=== PATIENT | female | born 1940 | race Caucasian/White ===

== ENCOUNTER 2019-07-21 07:57 | Outpatient (CLI) | payer OTHER, MEDICAID, SELFPAY ==
[2019-07-21 08:16] LABS: Basophils Percent Auto 0.4 % (0.2-1.2); Eosinophils Absolute Auto 0.1 K/mm3 (0-0.3); Eosinophils Percent Auto 1.6 % (0-4.4); Hematocrit 41.4 % (37.0-47.0); Hemoglobin 13.7 g/dL (12.0-15.0); Immature Granulocyte Absolute 0.01 K/mm3 (0.00-0.031); Immature Granulocyte Percent A 0.2 % (0-0.5); Lymphocytes Percent Auto 45.7 % (18.3-44.2); Mean Corpuscular HGB Conc 33.1 g/dl (32-36); Mean Corpuscular Hemoglobin 28.1 pg (26-34); Mean Platelet Volume 9.7 fl (7.4-10.4); Monocytes Absolute Auto 0.4 K/mm3 (0.1-0.6); Monocytes Percent Auto 6.9 % (2.6-8.5); Neutrophils Absolute Auto 2.6 K/mm3 (1.3-6.7); Neutrophils Percent Auto 45.2 % (45.5-73.1); Platelet Count Result 238 k/mm3 (150-375); Red Blood Count 4.87 M/mm3 (4.2-5.4); Red Cell Distribution Width 13.8 % (11.5-14.5); White Blood Count 5.7 K/mm3 (4.5-10.0)
[2019-07-21 08:38] LABS: LDL Cholesterol Direct 69 mg/dL
[2019-07-21 08:46] LABS: Albumin Level 4.8 g/dL (3.5-5.1); Carbon Dioxide 23 mmol/L (22-30)
[2019-07-21 08:51] LABS: Hemoglobin A1C 6.9 % (<5.7)
[2019-07-21 11:13] LABS: Alanine Aminotransferase 33 U/L (4-35); Alkaline Phosphatase 42 U/L (38-126); Aspartate Amino Transferase 45 U/L (14-36); Blood Urea Nitrogen 16 mg/dL (7-17); Calcium 9.7 mg/dL (8.4-10.2); Chloride 104 mmol/L (98-107); Cholesterol 134 mg/dL (0-200); Estimated Glomerular Filt Rate > 60; Glucose 136 mg/dL (65-105); HDL Direct 34 mg/dL; Potassium 4.4 mmol/L (3.4-5.0); Sodium 138 mmol/L (137-145); Triglycerides 206 mg/dL (<150)
== END 2019-07-21 07:58 | disposition home or self-care (01) ==
PROVIDERS: PCP Family Medicine; Visit Provider Family Medicine
DX: E78.5 Hyperlipidemia, unspecified (principal); I10 Essential (primary) hypertension; E11.9 Type 2 diabetes mellitus without complications
CPT/HCPCS: 36415; 80053; 80061; 83036; 85025

== ENCOUNTER → 2021-01-25 11:49 | Outpatient (CLI) | payer OTHER, MEDICAID, SELFPAY ==
--- NOTE | ~2021-01-25 | XR_ITS ---
EXAMINATION: XR shoulder LT min 2V INDICATION: Left shoulder pain TECHNIQUE: Three views of the left shoulder are submitted. COMPARISON: None FINDINGS: Normal alignment. No fracture. There is moderate osteoarthritis of the acromioclavicular mary beth int and mild osteoarthritis of the glenohumeral joint. Soft tissues are unremarkable. IMPRESSION: 1. Osteoarthritis without acute osseous abnormality. Reviewed, dictated and finalized at location A.
--- NOTE | ~2021-01-25 | XR_ITS ---
EXAMINATION: XR thoracic spine 2V DATE: 01/25/2021 12:35 INDICATION: Dorsalgia, unspecified TECHNIQUE: AP and lateral views of the thoracic spine were obtained. COMPARISON: None. FINDINGS: No fracture is identified. There is mild anterior wedging T7-T9 which has a chronic appeara nce. There is mild loss of intervertebral disc space height in the midthoracic spine. Small degenerat connie osteophytes project from the anterior endplates of multiple vertebral bodies. Calcified atheroscl erosis is noted. Surgical clips in the right upper quadrant are likely from prior cholecystectomy. IMPRESSION: 1. Mild thoracic spondylosis. Reviewed, dictated and finalized at location A.
--- NOTE | ~2021-01-25 | XR_ITS ---
EXAMINATION:XR_CERV2-3V_CR DATE: 01/25/2021 12:34 INDICATION: Neck pain TECHNIQUE: AP, lateral, and odontoid views of the cervical spine are provided. COMPARISON: CT, 03/26/2018 FINDINGS: Alignment is normal. The odontoid is intact. No fracture is identified. The vertebral body heights are normal. There is unchanged there is mild facet and uncovertebral joint osteoarthritis. Mi ld loss of intervertebral disc space height at C6-7. Prevertebral soft tissues are normal. IMPRESSION: 1. Mild cervical spondylosis without acute findings or significant interval change. Reviewed, dictated and finalized at location A. IMPRESSION: 1. Mild cervical spondylosis without acute findings or significant interval rafa lisa.
== END ==
PROVIDERS: PCP Family Medicine; Visit Provider Family Medicine
DX: M47.894 Other spondylosis, thoracic region (principal); M47.892 Other spondylosis, cervical region; M19.012 Primary osteoarthritis, left shoulder
CPT/HCPCS: 72040; 72070; 73030

== ENCOUNTER 2021-02-16 08:49 | Outpatient (CLI) | payer OTHER, MEDICAID, SELFPAY ==
--- NOTE | ~2021-02-16 | DEXA_ITS ---
Bone Density Report Name: Manasa Stuart Age: 80 Sex: Female Ethnicity: White Date of : 1940 Indication: monitoring treatment; height loss; prior fracture; cancer; hysterectomy; postmenopausal Referring Provider: Lisa Cazares Study: Bone densitometry was performed. Exam Date: February 16, 2021 Accession number: [id number] Bone Density: Region BMD T-score Z-score Classification AP Spine (L1-L4) 1.012 -0.3 2.4 Normal Femoral Neck (Left) 0.673 -1.6 0.7 Osteopenia Total Hip (Left) 0.863 -0.6 1.4 Normal Total Hip Bilateral Avg 0.865 -0.6 1.4 Normal Femoral Neck (Right) 0.661 -1.7 0.6 Osteopenia Total Hip (Right) 0.867 -0.6 1.4 Normal World Health Organization criteria for BMD impression classify patients as: Normal (T-score at or above -1.0), Osteopenia (T-score between -1.0 and -2.5), or Osteoporosis (T-score at or below -2.5). 10-year Fracture Risk: FRAX not reported because: Treated for osteoporosis Previous Exams: Region Exam Age BMD T-score BMD Change BMD Change Date g/cm2 vs Baseline vs Previous AP Spine(L1-L4) 02/16/2021 80 1.012 -0.3 0.027(2.7%)* -0.006(-0.5%) 08/05/2018 78 1.017 -0.3 0.032(3.3%)* 0.032(3.3%)* 04/18/2016 76 0.985 -0.6 Total Hip(Left) 02/16/2021 80 0.863 -0.6 -0.029(-3.2%)* -0.043(-4.8%)* 08/05/2018 78 0.906 -0.3 0.014(1.6%) 0.014(1.6%) 04/18/2016 76 0.892 -0.4 Total Hip(Right) 02/16/2021 80 0.867 -0.6 -0.038(-4.2%)* -0.006(-0.7%) 08/05/2018 78 0.873 -0.6 -0.032(-3.5%)* -0.032(-3.5%)* 04/18/2016 76 0.905 -0.3 *Denotes significance at 95% confidence level, LSC for AP Spine = 0.022 g/cm2, LSC for Total Hip = 0.027 g/cm2 Clinical Information Provided by Patient: Has had a low trauma fracture Is being treated for osteoporosis Has used the following medications: Fosamax (i.e. alendronate), Vitamin D, Calcium Has the following medical conditions: Cancer, Hysterectomy Patient maximum height was 67.5 Menopause Age: 36 Does not regularly consume dairy products Drinks caffeinated beverages Onset of menses at age 16 Number of children 4 Impression: The patient has low bone mass, based on the Right Femoral Neck T-score. The patient has risk factors, including: previous fracture. The BMD for the Total Hip(Left) decreased, changing by -4.8% since the last DXA exam. Discussion: SIGNIFICANT BONE LOSS OBSERVED. Adherence to therapy (including calcium and vitamin D intake)
--- NOTE | ~2021-02-16 | MM_ITS ---
EXAMINATION: MM screening cindi BI w grady HISTORY: Screening mammogram, family history of breast cancer in her sister. TECHNIQUE: Craniocaudal and mediolateral oblique 3-D tomosynthesis images were obtained and synthetic 2-D images were generated. CAD analysis was submitted and interpreted. COMPARISON: 08/05/2018, 11/11/2017, 05/14/2017 BREAST PARENCHYMAL COMPOSITION: There are scattered areas of fibroglandular density. FINDINGS: Scattered benign-appearing calcifications are present. There is no evidence of suspicious m ass, calcification, or architectural distortion to suggest malignancy in either breast. There has bee n no suspicious interval change. IMPRESSION: 1. No mammographic evidence of malignancy. 2. Recommend routine screening mammography in one year. BI-RADS Category 2: Benign finding(s). Reviewed, dictated and finalized at location A. 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
== END 2021-02-16 08:50 | disposition home or self-care (01) ==
LOC: ANHIMG 08:51
PROVIDERS: PCP Family Medicine; Visit Provider Family Medicine
DX: Z12.31 Encounter for screening mammogram for malignant neoplasm of breast (principal); Z78.0 Asymptomatic menopausal state; M81.0 Age-related osteoporosis without current pathological fracture; M85.852 Other specified disorders of bone density and structure, left thigh; M85.851 Other specified disorders of bone density and structure, right thigh
CPT/HCPCS: 77063; 77067; 77080

== ENCOUNTER 2021-02-22 06:34 | Outpatient (CLI) | payer OTHER, MEDICAID, SELFPAY ==
--- NOTE | ~2021-02-22 | MR_ITS ---
EXAMINATION: MR cervical spine wo con DATE: 02/22/2021 08:03 INDICATION: Neck pain. TECHNIQUE: Magnetic resonance imaging (MRI) of the cervical spine was performed without intravenous c ontrast. Sequences included sagittal T2-weighted FSE, sagittal T2-weighted FS FSE, sagittal T1-weight ed FSE, axial MERGE, and axial T2-weighted FSE. COMPARISON: Cervical spine radiographs 01/25/2021 FINDINGS: There is 5 degrees levocurvature of cervical spine. Vertebral body heights are normal. Ther e is mildly decreased disc height at C6-C7. The spinal cord signal intensity is normal. The following disc levels are specifically discussed: C2-C3: The disc does not extend beyond the endplate margin. There is no uncovertebral joint osteoarth ritis. There is mild right facet joint osteoarthritis. There is no neural foraminal stenosis. There i s no central canal stenosis. C3-C4: The disc does not extend beyond the endplate margin. There is no uncovertebral joint osteoarth ritis. There is mild bilateral facet joint osteoarthritis. There is no neural foraminal stenosis. The re is no central canal stenosis. C4-C5: The disc is bulging. There is moderate right and mild left uncovertebral joint osteoarthritis. There is severe right and moderate left facet joint osteoarthritis. There is mild right neural rock inal stenosis. There is mild central canal stenosis with ventral indentation of the spinal cord. C5-C6: The disc is bulging. There is no uncovertebral joint osteoarthritis. There is mild right facet joint osteoarthritis. There is mild right neural foraminal stenosis. There is mild central canal christy nosis. C6-C7: The disc is bulging. There is no uncovertebral joint osteoarthritis. There is moderate right a nd mild left facet joint osteoarthritis. There is mild right neural foraminal stenosis. There is mild central canal stenosis. C7-T1: The disc does not extend beyond the endplate margin. There is no uncovertebral joint osteoarth ritis. There is mild bilateral facet joint osteoarthritis. There is no neural foraminal stenosis. The re is no central canal stenosis. IMPRESSION: 1. Mild cervical spondylosis. Reviewed, dictated and finalized at location B. 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
== END 2021-02-22 06:35 | disposition home or self-care (01) ==
PROVIDERS: PCP Family Medicine; Visit Provider Family Medicine
DX: M47.892 Other spondylosis, cervical region (principal)
CPT/HCPCS: 72141

== ENCOUNTER 2021-04-17 09:00 | Outpatient (RCR) | payer OTHER, MEDICAID, SELFPAY ==
--- NOTE | 2021-03-20 09:02 | PTOPEVAL ---
PHYSICAL THERAPY EVALUATION AND PLAN OF CARE 03-20-21 Thank you for referring Manasa Stuart to [facility] for the diagnosis of cervical radiculopathy. She is scheduled to be seen for therapy? 2 x/week for 4 weeks. Please review, sign, date and return this plan of care LIO. I agree with and certify that the following plan of care is medically necessary. Referring Physician Date Attending Provider: Lisa Cazares DO *PT Outpatient Evaluation Start: 03/20/21 08:11 Document 03/20/21 08:05 SEN (Rec: 03/20/21 08:55 SEN [id number]) Outpatient Past Medical History Past Medical History Source of Past Medical History Patient Neurological History Hx Neurological Disorders No Significant History Cardiovascular History Hx Hypertension Yes: meds Respiratory History Hx Respiratory Disorders No Significant History Gastrointestinal History Hx Gastrointestinal Disorders No Significant History Genitourinary History Hx Other Genitourinary Disorders Yes: urinary urgency Musculoskeletal History Hx Orthopedic Surgery Yes: B ankle ORIF, back surgery x2-&; Endocrine History Hx Diabetes Yes: meds HEENT History Hx Other HEENT Disorders Yes: B hearing aides Other History Hx Cancer Yes: several areas of skin cancer removed Hx Other Medical Conditions Yes: have had covid vaccine Evaluation Information Problem Diagnosis cervical radiculopathy Onset 02-07-21 Subjective Information at home, barefoot and tangled Query Text:As Reported By Patient/ up with vacuum cord, reached Family for doorknob to catch herself, door moved, she fell and landed on L shoulder; x ray report stated mild to moderate arthritis of shoulder and neck; MRI neck reported C 4-5, C 5-6 and C 6-7 with bulging discs and C 4-5 and C 6-7 with moderate to severe facet OA; since onset, little better with rest and decreased activity; Prior Level of Function Activity Level (Last 3 Months) Occupation retired Hand Dominance Right Activity of Daily Living Ability Independent Indoor/Home Mobility Independent Community Mobility Independent Stairs Ability Independent Functional Cognition (Planning, Shopping Independent , Taking Medications) Cooking Yes Cleaning Yes
--- NOTE | 2021-03-30 13:58 | PCPTNOTE ---
Patient called & cancelled scheduled appointment this date due to not feeling well.
--- NOTE | 2021-04-17 09:37 | PTOPEVAL ---
PHYSICAL THERAPY DISCHARGE 04-17-21 Refer to the clinical summary for her status today, compared to the initial evaluation. All of the goals were achieved; she will be discharged from PT at this time. Thank you for referring Manasa Stuart to [facility] Please review, sign, date and return this Discharge report LIO. I agree with and certify that the following plan of care is medically necessary. Referring Physician Date Attending Provider: Lisa Cazares, DO Document 04/17/21 09:05 SEN (Rec: 04/17/21 09:37 SEN [id number]) Assessment Status Discharge Subjective Information Manasa reports: doing better, Query Text:As Reported By Patient/ can move arm better, can wash Family hair without pain; doing her home exercises without any problems; when the [facility] back up, is going to return to doing chair exercises and yoga there; is pleased with her therapy and agrees to discharge from PT services. Pain Assessment Timing of Pain Assessment Timing of Pain Assessment Assessment Pain Scale Pain Scale Used Numeric (1 - 10) Self Report Pain Assessment Bilateral Neck Reported Pain Level 0 Pain Frequency Chronic,Intermittent Lowest Pain Intensity 0 Greatest Pain Intensity 3 Pain Aggravating Factors Exercise/Activity Other Pain Aggravating Factors carrying groceries in and it was cold outside; Pain Score Pain Score 0: Self Report Additional Pain Score Comments Oswestry self assessment score of 10% limitation able to cook without any problem or pain; able to reach and wash hair without pain; Interventions Used Interventions Used By Clinicians Education,Exercise Pain Relief Interventions Used By Heat Patient Other Alleviating Interventions muscle cream; Upper Extremity Range of Motion General Upper Extremity Range of Motion Gross Upper Extremity Range of Motion cervical ROM: rotation to R Comments and L with equal ROM and no pain reported; standing L shoulder ROM: active flexion 140' abduction 145'; ER- reach to back of head with palm -- can feel a little in posterior humerus; IR- reach behind back, fingers
== END 2021-04-18 14:37 | disposition home or self-care (01) ==
LOC: ANHPT 09:00
PROVIDERS: PCP Family Medicine; Visit Provider Family Medicine
DX: M54.12 Radiculopathy, cervical region (principal)
CPT/HCPCS: 97014; 97110; 97140; 97161; G0283

== ENCOUNTER 2021-08-02 10:07 | Outpatient (CLI) | payer OTHER, MEDICAID, SELFPAY ==
--- NOTE | ~2021-08-02 | XR_ITS ---
EXAMINATION: XR chest 2V DATE: 08/02/2021 10:35 INDICATION: Dyspnea, unspecified. TECHNIQUE: Frontal and lateral views of the chest were obtained. COMPARISON: None. FINDINGS: There is no pneumonia, pleural effusion, or pneumothorax. Cardiomegaly is noted. There is m ild chronic anterior wedging of multiple midthoracic vertebral bodies. IMPRESSION: 1. Cardiomegaly. Reviewed, dictated and finalized at location B. IMPRESSION: 1. Cardiomegaly.
== END 2021-08-02 10:08 | disposition home or self-care (01) ==
PROVIDERS: PCP Family Medicine; Visit Provider Family Medicine
DX: R06.00 Dyspnea, unspecified (principal); I51.7 Cardiomegaly
CPT/HCPCS: 71046

== ENCOUNTER 2021-09-26 07:22 | Outpatient (CLI) | payer OTHER, MEDICAID, SELFPAY ==
--- NOTE | 2021-10-09 19:20 | WPDHOMESLEEP ---
Sleep Study - Home Unattended Date of Study: 09/26/21 Ordering Provider: Quinn Joshi DO Interpreting Provider: Marcia Alicea DO Home Sleep Study Type: Apnea Link Air Height: 1.7 m Weight: 87.997 kg Body Mass Index: 30.4 Neck Circumference (inches): 16.5 [place]: 5 Reason for Sleep Study Unrefreshing sleep, daytime hypersomnia Sleep History The patient is an 81-year-old female with hypertension, diabetes, GERD and obesity had a sleep study ordered by her sports athletic trainer for evaluation of sleep apnea. The patient denies awakening from sleep short of breath. She rarely awakens at night with heartburn, belching or cough. She denies snoring. She frequently has trouble sleeping when she has a cold. She denies waking up gasping for air throughout the night. She denies having breathing problems at night observed by herself or others. She occasionally sweats excessively at night. She denies having heart palpitations or irregular heartbeats during the night. She occasionally falls asleep during the day but never while driving. She denies sleep paralysis, cataplexy and hypnagogic / hypnopompic hallucinations. She denies having nightmares. She rarely remembers her dreams. She frequently has thoughts racing through her mind. She frequently feels sad or depressed. She frequently has anxiety. She denies having muscular tension. She rarely notices parts of her body jerk. She denies kicking during the night. She denies having crawling and aching feelings in her legs as well as leg pain during the night. She denies grinding her teeth during sleep and awakening with morning jaw pain. She is occasionally bothered by pain during the day and occasionally awakened by pain during the night. She rarely wakes up feeling stiff in the morning. She rarely wakes up with sore achy muscles. She rarely wakes up with pain in the neck, spine or other joints. She goes to bed at 10:30 p.m. on both weekdays and weekends. It takes her 30 minutes to fall asleep. She wakes up 1-2 times throughout the night. When she awakens, she will read, watch television or play games on her phone. It takes her 2-3 hours to fall back asleep. She wakes up between 7-9 a.m. on both weekdays and weekends. She typically gets 3-4 hours of sleep per night. She will stay in bed for 30 minutes after waking up in the morning. She currently lives with her ex-. She does not consume any caffeinated beverages within 2 hours of bedtime. She does not engage in physical exercise before bedtime. She will occasionally read before falling asleep. She will watch television before falling asleep. She will take naps in the afternoon or the evening and they are refreshing. She drinks 1-2 caffeinated beverages per day. She denies tobacco, alcohol and recreational drug use. FORMERLY [facility] Past Medical History Medical History Colonoscopy planned 2009 Encounter for audiology evaluation 2016 Eye exam normal 2018 History of bone density study 2017 Mammogram normal 2018 Surgical History Surgical History Calcium deposit in bursa, unspecified ankle and foot right heel 2013 left heel 2011 Gallbladder calculus with acute cholecystitis 2010 History of back surgery L3,L4,L5,S1 removed spinal fluid that was outside of spinal column 1988 History of back surgery L4,L5 removed spinal fluid that was outside of spinal column 1991 History of breast lump removal left breast 1970 History of hysterectomy still has both ovaries 1974 History of removal of skin mole 100+ 1972 Parathyroid disorder 2009 Skin cancer, basal cell 1974 2015 (2) 2016 [place] teeth removed 1985 Family History Family History Sibling Liver cancer Breast cancer Other Cerebrovascular accident Family history
[2021-10-09 19:31] VITALS: BMI 30.4
== END 2021-09-27 10:40 | disposition home or self-care (01) ==
LOC: ANHCSM 07:23
PROVIDERS: PCP Family Medicine; Visit Provider Internal Medicine Cardiovascular Disease
DX: G47.10 Hypersomnia, unspecified (principal)
CPT/HCPCS: 95806

== ENCOUNTER 2021-11-07 07:23 | Outpatient (CLI) | payer OTHER, MEDICAID, SELFPAY ==
--- NOTE | ~2021-11-07 | NM_ITS ---
EXAMINATION: NM nga stress w perfusion DATE: 11/07/2021 10:53 INDICATION: Dyspnea on exertion. TECHNIQUE: Rest images were obtained following intravenous administration of 11.9 mCi Tc99m tetrofosm in (Myoview). The patient was infused intravenously with Lexiscan (regadenoson). Then, 31.6 mCi Tc99m tetrofosmin (Myoview) was administered intravenously, and supine and prone stress images were obtain ed. Data was reconstructed into short axis and horizontal and vertical long axis SPECT images. Gated SPECT images were also obtained. COMPARISON: None. FINDINGS: There is no definite reversible or fixed perfusion abnormality to suggest ischemia or infar ction. There is no segmental wall motion abnormality. Left ventricular ejection fraction measures 5 3%. IMPRESSION: 1. No definite ischemia or infarct. 2. Normal left ventricular ejection fraction measuring 53%. Reviewed, dictated and finalized at location A.
--- NOTE | 2021-11-07 07:52 | EST_ITS ---
Patient Info Name: Manasa Stuart Age: 81 years : 1940 Gender: Female Ht: 66 in Wt: 190 lbs BSA: 2.03 m2 Exam Date: 11/07/2021 9:51 AM Exam Location: [facility] Stress Patient Status: Outpatient Admit Date: 11/07/2021 Staff Ordering Physician: Quinn Joshi DO Attending Provider: Quinn Joshi DO Exercise Technologist: Shila Merida RDCS Exercise Physician: Quinn Joshi DO Exam Type: CA stress nga w NM Study Info Indications R06.00 - Dyspnea, unspecified A regadenoson stress test was performed. Summary 1. 1. Negative lexiscan stress test for ischemic ST changes by ECG criteria. 2. 2. Baseline hypertension. 3. 3. Significant bradycardia with lexiscan. Given Aminophylline 100 mg IV for reversal. 4. 4. Nuclear scan to follow and will be reported separately. Please correlate with it. 5. 5. Patient informed of the above results. Protocol: Lexiscan Stress ECG Details Stage: REST Duration (min): 5 min : 6 sec HR (bpm): 88 SBP (mmHg): 157 DBP (mmHg): 97 Stage: REST Duration (min): 5 min : 26 sec HR (bpm): 92 SBP (mmHg): 157 DBP (mmHg): 97 Stage: REST Duration (min): 12 min : 3 sec HR (bpm): 98 SBP (mmHg): 157 DBP (mmHg): 97 Stage: STAGE 1 Duration (min): 0 min : 59 sec HR (bpm): 109 SBP (mmHg): 151 DBP (mmHg): 97 Stage: RECOVERY Duration (min): 1 min : 0 sec HR (bpm): 107 SBP (mmHg): 142 DBP (mmHg): 87 Stage: RECOVERY Duration (min): 2 min : 0 sec HR (bpm): 49 SBP (mmHg): 142 DBP (mmHg): 87 Stage: RECOVERY Duration (min): 3 min : 0 sec HR (bpm): 76 SBP (mmHg): 142 DBP (mmHg): 87 Stage: RECOVERY Duration (min): 4 min : 0 sec HR (bpm): 131 SBP (mmHg): 142 DBP (mmHg): 87 Stage: RECOVERY Duration (min): 5 min : 0 sec HR (bpm): 122 SBP (mmHg): 192 DBP (mmHg): 110 Stage: RECOVERY Duration (min): 6 min : 0 sec HR (bpm): 113 SBP (mmHg): 192 DBP (mmHg): 110 Stage: RECOVERY Duration (min): 7 min : 0 sec HR (bpm): 106 SBP (mmHg): 198 DBP (mmHg): 110 Stage: RECOVERY Duration (min): 8 min : 0 sec HR (bpm): 102 SBP (mmHg): 198 DBP (mmHg): 110 Stage: RECOVERY Duration (min): 9 min : 0 sec HR (bpm): 108 SBP (mmHg): 183 DBP (mmHg): 109 Stage: RECOVERY Duration (min): 10 min : 0 sec HR (bpm): 110 SBP (mmHg): 183 DBP (mmHg): 109 Stage: RECOVERY Duration (min): 11 min : 0 sec HR (bpm): 104 SBP (mmHg): 180 DBP (mmHg): 107 Stage: RECOVERY Duration (min): 12 min : 0 sec HR (bpm): 104 SBP (mmHg): 180 DBP (mmHg): 107 Stage: RECOVERY Duration (min): 13 min : 0 sec HR (bpm): 78 SBP (mmHg): 172 DBP (mmHg): 104 S
--- NOTE | 2021-11-07 07:52 | ECHO_ITS ---
Patient Info Name: Manasa Stuart Age: 81 years : 1940 Gender: Female Ht: 66 in Wt: 190 lbs BSA: 2.03 m2 HR: 89 bpm BP: 129 / 90 mmHg Technical Quality: Fair Exam Date: 11/07/2021 8:12 AM Exam Location: [facility] Pulmonary Patient Status: Outpatient Admit Date: 11/07/2021 Staff Ordering Physician: Quinn Joshi DO Betting Clerks: Shila Merida RDCS Attending Provider: Quinn Joshi DO Referring Physician: Adi ROJAS; Exam Type: CA echo doppler color flow Study Info Indications R06.00 - Dyspnea, unspecified Summary 1. Left ventricular chamber dimension is mildly enlarged. 2. Basal to mid segments of LV are hypokinetic, but apical segments have normal contractility. 3. Left ventricular systolic function is moderately reduced, estimated at 40-45%. 4. The left ventricular diastolic function is grade I diastolic dysfunction. 5. E/e' 11 is mildly elevated. 6. Global longitudinal strain is abnormal at -9.0%. 7. Right ventricular systolic function is reduced based on abnormal TAPSE 1.3 cm. 8. There is mild aortic valve sclerosis. 9. No pulmonary hypertension, estimated pulmonary arterial systolic pressure is 28 mmHg. Left Ventricle E/e' 11 is mildly elevated. Global longitudinal strain is abnormal at -9.0%. Basal to mid segments of LV are hypokinetic, but apical segments have normal contractility. Left ventricular chamber dimension is mildly enlarged. Left ventricular systolic function is moderately reduced, estimated at 40-45%. The left ventricular diastolic function is grade I diastolic dysfunction. Right Ventricle Right ventricular systolic function is reduced based on abnormal TAPSE 1.3 cm. Right ventricular chamber dimension is not well visualized. Left Atria Left atrial chamber dimension is normal. Right Atria Right atrial chamber dimension is normal. Aortic Valve The aortic valve is trileaflet. There is mild aortic valve sclerosis. There is no aortic valve stenosis. There is no aortic valve regurgitation. Pulmonic Valve There is no pulmonic regurgitation. Mitral Valve There is no mitral valve stenosis. There is no mitral valve regurgitation. Tricuspid Valve There is no tricuspid valve regurgitation. No pulmonary hypertension, estimated pulmonary arterial systolic pressure is 28 mmHg. Pericardium/Pleural There is no pericardial effusion. Inferior Vena Cava Normal inferior vena cava with >50% collapse upon inspiration consistent with normal right atrial pressure, 5 mmHg. Aorta The aortic root size at the sinus of Valsalva is normal. Left Ventricular Outflow Tract Name Value Normal LVOT 2D LVOT Diameter 2.0 cm LVOT Doppler LVOT Peak Gradient 6 mmHg LVOT Mean Gradient 3 mmHg LVOT VTI 19 cm LVOT VTI/AV VTI Ratio 0.8 LVOT Stroke Volume 58 ml LVOT CO 5.4 l/min LVOT CI 2.6 l/min/m2 Pulmonic Valve
== END 2021-11-07 07:24 | disposition home or self-care (01) ==
PROVIDERS: PCP Family Medicine; Visit Provider Internal Medicine Cardiovascular Disease
DX: R06.00 Dyspnea, unspecified (principal); I10 Essential (primary) hypertension
CPT/HCPCS: 78452; 93017; 93306; A9502; J0280; J2785

== ENCOUNTER 2022-01-11 13:02 | Observation (INO) | payer OTHER, MEDICAID, SELFPAY ==
[2022-01-11] VITALS (24 sets, daily range): BP systolic 103–147; BP diastolic 58–86; PULSE 66–98; RESP 16–29; TEMP 36.6–37; O2SAT 94–99; BMI 30.4
--- NOTE | ~2022-01-11 | XR_ITS ---
EXAMINATION: XR chest 2V DATE: 01/11/2022 14:03 INDICATION: Shortness of breath and sudden onset chest pain TECHNIQUE: frontal and lateral views of the chest were obtained. COMPARISON: Chest radiograph dated 08/02/2021 FINDINGS: The lungs remain clear with no focal airspace opacities, pulmonary edema, pleural effusion or pneumot horax. Heart size is normal. Atherosclerotic thoracic aorta. Cholecystectomy clips in right upper yolis drant. Mild thoracic spondylosis with mild anterior wedging of a few mid thoracic vertebral bodies. IMPRESSION: 1. No acute cardiopulmonary disease. Reviewed, dictated and finalized at location B.
--- NOTE | ~2022-01-11 | CT_ITS ---
EXAMINATION: CT abdomen pelvis w con DATE: 01/12/2022 09:04 INDICATION: Weight loss. TECHNIQUE: Computed tomography (CT) of the abdomen and pelvis was performed with 100 mL Omnipaque 350 intravenous contrast. Automated exposure control and iterative reconstruction technique were employe d. The dose-length product was 1199.12 mGy-cm. COMPARISON: None. FINDINGS: The visualized portions of the lung bases demonstrate mild atelectasis. There are greater t luciano 30 scattered nodules in a random distribution measuring up to 7 mm. No pleural effusion. The hear t size is normal. No pericardial effusion. There are greater than 30 masses in the liver measuring up to 2.5 cm. There are changes of cholecystectomy. The spleen is normal. There is a parenchymal calcif ication in the pancreas. There is an 11 mm cystic lesion in the head of the pancreas, likely not clin ically significant. The adrenal glands and kidneys are normal. There is diverticulosis of the colon w ithout evidence of diverticulitis. There are no dilated loops of bowel. The appendix is normal. There are no pathologically enlarged lymph nodes. There is no free intraperitoneal fluid. There is moderat e lumbar spondylosis. There are sclerotic lesions in L3 and L4 vertebral bodies. IMPRESSION: 1. Pulmonary nodules and liver masses, consistent with metastatic disease. Ultrasound-guided core bio psy of a liver mass is recommended. 2. Sclerotic lesions in L3 and L4 vertebral bodies, which are indeterminate for metastatic disease. Reviewed, dictated and finalized at location A. IMPRESSION: 1. Pulmonary nodules and liver masses, consistent with metastatic disease. Ultr asound-guided core biopsy of a liver mass is recommended. 2. Sclerotic lesions in L3 and L4 vertebral bodies, which are indeterminate for metastatic disease.
--- NOTE | 2022-01-11 13:04 | ECG_ITS ---
Measurements Intervals [place] Rate: 86 P: 36 HI: 161 QRS: -13 QRSD: 90 T: 6 QT: 326 QTc: 391 Interpretive Statements SINUS RHYTHM MODERATE VOLTAGE CRITERIA FOR LVH, CONSIDER NORMAL VARIANT [MEETS CRITERIA IN ONE OF: R(aVL), S(V1), R(V5), R(V5/V6)+S(V1)] NO PREVIOUS ECG AVAILABLE FOR COMPARISON Electronically Signed On 01-11-2022 15:50:51 CDT by Francisco Martin M.D.
[2022-01-11 13:46] LABS: Basophils Percent Auto 0.2 % (0.2-1.2); Eosinophils Absolute Auto 0.1 K/mm3 (0-0.3); Eosinophils Percent Auto 0.4 % (0-4.4); Hematocrit 38.4 % (37.0-47.0); Hemoglobin 12.4 g/dL (12.0-15.0); Immature Granulocyte Absolute 0.04 K/mm3 (0.00-0.031); Immature Granulocyte Percent A 0.3 % (0-0.5); Lymphocytes Absolute Auto 4.98 K/mm3 (0.9-3.2); Lymphocytes Percent Auto 39.8 % (18.3-44.2); Mean Corpuscular HGB Conc 32.3 g/dl (32-36); Mean Corpuscular Hemoglobin 28.2 pg (26-34); Mean Corpuscular Volume 87.5 fl (80-100); Mean Platelet Volume 9.5 fl (7.4-10.4); Monocytes Absolute Auto 0.3 K/mm3 (0.1-0.6); Monocytes Percent Auto 2.2 % (2.6-8.5); Neutrophils Absolute Auto 7.1 K/mm3 (1.3-6.7); Neutrophils Percent Auto 57.1 % (45.5-73.1); Platelet Count Result 172 k/mm3 (150-375); Red Blood Count 4.39 M/mm3 (4.2-5.4); Red Cell Distribution Width 13.6 % (11.5-14.5); White Blood Count 12.5 K/mm3 (4.5-10.0)
[2022-01-11] MEDS: ASPIRIN 81 MG CHEWABLE TABLET 324 MG PO (13:46)
[2022-01-11 13:57] LABS: Alanine Aminotransferase 24 U/L (6-35); Albumin Level 5.1 g/dL (3.5-5.1); Alkaline Phosphatase 164 U/L (38-126); Anion Gap 21 mmol/L (8-16); Aspartate Amino Transferase 32 U/L (14-36); Bilirubin,Total 0.8 mg/dL (0.2-1.3); Blood Urea Nitrogen 54 mg/dL (7-17); Calcium 9.8 mg/dL (8.4-10.2); Carbon Dioxide 20 mmol/L (22-30); Chloride 99 mmol/L (98-107); Estimated CRCL calculation 34 ml/min; Estimated Glomerular Filt Rate 39; Glucose 241 mg/dL (65-110); INR 1.4; Lipase 195 U/L (23-300); Potassium 5.5 mmol/L (3.4-5.0); Prothrombin Time 16.7 Seconds (11.1-14.7); Sodium 140 mmol/L (137-145)
[2022-01-11 13:58] LABS: Partial Thromboplastin Time 30.1 SECONDS (22.3-36.8)
[2022-01-11 14:14] LABS: Troponin I 0.036 ng/mL (0.000-0.034)
[2022-01-11 14:21] LABS: Glucose Point of Care 220 mg/dl (65-105)
[2022-01-11] MEDS: INSULIN HUMAN REGULAR (*BKC) 100 UNITS/ML IV PUSH (14:24)
[2022-01-11] MEDS: DEXTROSE 25% INJ 2.5 GM/10 ML SYR IV PUSH (14:28)
--- NOTE | 2022-01-11 14:30 | ED.CHESTPAIN ---
HPI - Chest Pain General Chief Complaint: Chest Pain Stated Complaint: chest pain Time Seen by Provider: 01/11/22 13:34 History of Present Illness HPI narrative: 81-year-old female presented to the emergency department for evaluation of intermittent chest pain. Patient states a few weeks ago she was having some right-sided chest pain that last about an hour and resolved. Patient states this morning she was at rest and once again she had approximately 1 hour of right-sided chest pain. Patient was at rest when this occurred. Patient does have history of diabetes, systolic and diastolic congestive heart failure. Patient states she has been increasingly fatigued over the last 4-6 weeks and has had approximately 20 pounds of weight loss. Patient has history of CHF, hypotension, diabetes Related Data Home Medications Medication Instructions Recorded Confirmed aspirin 81 mg tablet,delayed 81 mg PO DAILY 05/12/20 01/11/22 release (Adult Aspirin Regimen) calcium carbonate 600 mg calcium 600 mg PO DAILY 05/12/20 01/11/22 (1,500 mg) tablet (Calcium) cholecalciferol (vitamin D3) 25 25 mcg PO DAILY 05/12/20 01/11/22 mcg (1,000 unit) capsule vitamin B complex (B 1 tablet PO DAILY 05/12/20 01/11/22 Complex-Vitamin B12 tablet) vit C 250 mg-vit E 90 mg-zinc 40 1 tablet PO BID 12/07/20 01/11/22 mg-copper 1 yl-ayyehb-jdaacz capsule (PreserVision AREDS-2) melatonin 10 mg tablet 10 mg PO QHS 08/01/21 01/11/22 omega 8-rrb-lkt-fish oil 1,000 mg 1 cap PO DAILY 08/15/21 01/11/22 (120 mg-180 mg) capsule (Fish Oil) amlodipine 5 mg tablet 5 mg PO DAILY 01/11/22 01/11/22 methylprednisolone 4 mg tablets in 4 mg PO PER PKG DIR 01/11/22 01/11/22 a dose pack (Medrol (Jaziel)) Allergies Allergy/AdvReac Type Severity Reaction Status Date / Time alendronate sodium Allergy Intermediate hot flashes Verified 01/11/22 13:38 citalopram [From Celexa] AdvReac Diarrhea Verified 01/11/22 13:38 Review of Systems Review of Systems: CONSTITUTIONAL: Denies fever, chills, or sweats. EYES: Denies visual changes, redness, or discharge. ENT: Denies rhinorrhea, congestion, sore throat, or otalgia. CARDIOVASCULAR: See HPI RESPIRATORY: Denies cough or dyspnea. GASTROINTESTINAL: Denies abdominal pain, nausea, vomiting, or diarrhea. GENITOURINARY: Denies dysuria or hematuria. SKIN: Denies rash or itching. MUSCULOSKELETAL: Denies back pain, joint pain, or myalgia. NEUROLOGIC: Denies headache, numbness, or weakness. [facility] Past Medical History Medical History (Updated 01/11/22 @ 18:57 by Aflred Luna MD) Acute sinusitis Colonoscopy planned 2009 Encounter for audiology evaluation 2017 Eye exam normal 2017 History of bone density study 2017 Mammogram normal 2018 URI (upper respiratory infection) Surgical History Surgical History Calcium deposit in bursa, unspecified ankle and foot right heel 2013 left heel 2010 Gallbladder calculus with acute cholecystitis 2010 History of back surgery L3,L4,L5,S1 removed spinal fluid that was outside of spinal column 1988 History of back surgery L4,L5 removed spinal fluid that was outside of spinal column 1992 History of breast lump removal left breast 1971 History of hysterectomy still has both ovaries 1974 History of removal of skin mole 100+ 1972 Parathyroid disorder 2010 Skin cancer, basal cell 1974 2014 (2) 2016 Dola teeth removed 1985 Family History Family History Sibling Liver cancer Breast cancer Other Cerebrovascular accident Family history of primary malignant neoplasm of liver Social History Social History Smoking status: Former smoker Second hand tobacco smoke exposure: Yes Alcohol intake: never Drinks per week: 2 Alcohol use details: wine Substance use: never
--- NOTE | 2022-01-11 15:00 | PC.NURSE ---
Larissa held until 2 hours after apirin admin. Dr. Luna made aware.
[2022-01-11 15:16] LABS: Glucose Point of Care 212 mg/dl (65-105)
[2022-01-11 15:35] LABS: Add Urine Microscopic? YES; Appearance Urine Clear (Clear); Bilirubin Urine Negative (Negative); Blood Urine Negative (Negative); Color Urine Yellow (Yellow); Glucose Urine UA 1+ mg/dL (Negative); Ketones Urine Negative (Negative); Leukocyte Esterase Ur Negative LEU/UL (Negative); Mucus Urine Rare /lpf; Nitrate Urine Negative (Negative); Protein Urine Negative (Negative); RBC Urine 0-2 /hpf (0-2); Specific Grav Ur 1.021 (1.001-1.035); Squamous Epithelial Cell Urine Occasional /hpf (Few); Urobilinogen Urine Negative mg/dL (<2.0); WBC Urine 0-3 /hpf
[2022-01-11] MEDS: SODIUM ZIRCONIUM CYCLOSILICATE 10 GM POWD.PACK PO (16:06)
--- NOTE | 2022-01-11 16:06 | PM.CNCAR ---
Assessment and Plan Assessment and plan (1) Chest pain: Code(s): R07.9 - Chest pain, unspecified Status: Acute Assessment and Plan: Atypical. With negative lexiscan myoview stress test on 11/07/21, it is unlikely related to ACS. (2) FAUZIA (acute kidney injury): Code(s): N17.9 - Acute kidney failure, unspecified Status: Acute Assessment and Plan: Probably related to low dose Lasix 20 mg daily along with lack of appetite. (3) Elevated troponin: Code(s): R77.8 - Other specified abnormalities of plasma proteins Status: Acute Assessment and Plan: First troponin at .036. This could be related to FAUZIA. Trend troponin. (4) ZAMARRIPA (dyspnea on exertion): Code(s): R06.00 - Dyspnea, unspecified Status: Acute (5) Combined systolic and diastolic cardiac dysfunction: Code(s): I51.89 - Other ill-defined heart diseases Status: Acute Assessment and Plan: Not in acute heart failure. Echo findings suggest it could be due to Takotsubo cardiomyopathy. On Coreg and Lisinopril. 11/07/21 Echo: EF 40-45%, mild LVE, basal to mid LV hypokinetic, while apical segments have normal contractility, grade I diastolic dysfunction (E/e' 11), RV hypokinetic with TAPSE 1.3 cm. Stop Furosemide. Stop Lisinopril due to dry cough. Will start low dose Losartan 12.5 mg daily if BP remains stable. Decrease Coreg 3.125 mg BID. (6) Essential (primary) hypertension: Onset Date: ~2004 Code(s): I10 - Essential (primary) hypertension Status: Acute Assessment and Plan: Stable to low normal. (7) Dyslipidemia: Code(s): E78.5 - Hyperlipidemia, unspecified Status: Acute Assessment and Plan: On Atorvastatin. History of Present Illness History of Present Illness Consult date/time: 01/11/22 16:06 Reason For Visit: hyperkamlemia,acute kidney injury,elevated troponi Narrative: 81 yr old woman who is my regular cardiology patient and a patient of Dr. Cazares presents to ER for chest pain. She has a history of combined systolic and diastolic dysfunction, DM, hypertension. Her is at bedside in ER. States that she had mid chest with right arm discomfort intermittently for a few months. It got more severe several days ago and again today so she decided to come to ER. She has no appetite as she feels to weak to eat. States when she lies down she cannot lie flat and has chest pressure from that.She also has a dry cough.? Reports since pandemic started she has not been as active, and when she tried recently she noted more ZAMARRIPA walking in from parking lot when normally she can walk 2 blocks. Admits to snoring, waking up and daytime sleepiness and has to take naps. Denies chest pain, sob, orthopnea, PND, edema, palpitations, dizziness. Cardiovascular Procedures Echo/MUGA:: 11/07/21 Echo: EF 40-45%, mild LVE, basal to mid LV hypokinetic, while apical segments have normal contractility, grade I diastolic dysfunction (E/e' 11), RV hypokinetic with TAPSE 1.3 cm. Electrophysiology:: 08/01/21 EKG: Sinus rhythm, LVH, borderline T wave in inferior leads. Stress Tests:: 11/07/21 Lexiscan myoview: Normal. 09/26/21 Sleep study: No BETHANIE. Review of Systems Review of Systems: All systems reviewed & are unremarkable except as noted in HPI and below Constitutional: Constitutional: Reports as per HPI, Denies chills, Reports fatigue and Denies fever(s) Cardiovascular: Cardiovascular: Reports as per HPI, Reports chest pain, Denies irregular heart rhythm, Denies leg edema and Denies lightheadedness Respiratory: Respiratory: Reports as per HPI, Reports cough and Reports dyspnea on exertion Gastrointestinal: Gastrointestinal: Reports as per HPI and Denies abdominal pain Genitourinary: Genitourinary: Reports as per HPI and Denies dysuria Musculoskeletal: Musculoskeletal: Reports as per HPI Neurologic: Reports as per HPI, Denies dizziness and Denies syncope [facility] Past Medical History
[2022-01-11 16:30] LABS: SARS-CoV-2 RNA PCR Negative
[2022-01-11 16:52] LABS: Troponin I 0.031 ng/mL (0.000-0.034)
[2022-01-11 17:16] LABS: Glucose Point of Care 184 mg/dl (65-105)
[2022-01-11 19:52] LABS: Troponin I 0.029 ng/mL (0.000-0.034)
--- NOTE | 2022-01-11 19:54 | PM.IMHP ---
H&P: HPI History of Present Illness Date/Time: 01/11/22 19:54 Chief Complaint: Chest pain Narrative: This is an 81-year-old female patient who came to the emergency room today to be evaluated for intermittent chest. The patient's immigration officer is Dr. Joshi. The patient stated she had pain like this a few weeks ago and only lasted an hour and was resolved. However this morning she was at rest and once again she developed this chest pain she stated that she feels very weak and has had a poor appetite. She explained that she lost 20 lb in the last 4-6 weeks just because she has decreased appetite. She has history of diabetes and congestive heart failure. The patient had an echo on 11/07/2021. Her white count was listed as 12.5 today. Her potassium was found to be 5.5. Anion gap 21. BUN 54. Creatinine 1.3. Her last creatinine was normal. Her GFR is 39 today. Her blood sugars were 212 and then 184 today. Her 1st troponin was 0.036 and the 2nd 1 was 0.029. She was found to be negative. EKG was read as the following SINUS RHYTHM MODERATE VOLTAGE CRITERIA FOR LVH, CONSIDER NORMAL VARIANT? [MEETS CRITERIA IN ONE OF: R(aVL), S(V1), R(V5), R(V5/V6)+S(V1)] NO PREVIOUS ECG AVAILABLE FOR COMPARISON The patient had a stress test on 11/12/2021. The patient was given aspirin, Lokelma, insulin, and dextrose for the hyperkalemia. Cardiology has been consulted. The patient is being admitted to observation status on the date of service of 01/11/2022. Review of Systems Review of Systems: All systems reviewed & are unremarkable except as noted in HPI and below Constitutional: Constitutional: Reports as per HPI and Reports no additional constitutional complaints Eyes: Eyes: Reports as per HPI and Reports no additional eye complaints ENT: Reports system reviewed and no additional complaints, except as documented and Reports Normal hearing present Cardiovascular: Cardiovascular: Reports no additional cardiovascular complaints Respiratory: Respiratory: Reports no additional respiratory complaints and Reports no additional respiratory complaints Gastrointestinal: Gastrointestinal: Reports as per HPI and Reports no additional gastrointestinal complaints Musculoskeletal: Musculoskeletal: Reports no additional musculoskeletal complaints Integumentary/Breasts: Skin/Breast: Reports system reviewed and no additional complaints, except as docu and Reports as per HPI Neurologic: Reports system reviewed and no additional complaints, except as documented, Reports as per HPI and Reports Normal hearing present Psychiatric: Psychiatric: Reports no additional psychiatric complaints and Reports as per HPI Endocrine: Endocrine: Reports no additional endocrine complaints Hematologic/Lymphatic: Hematologic/Lymphatic: Reports no additional hematologic/lymphatic complaints Allergic/Immunologic: Allergic/Immunologic: Reports no additional allergic/immunologic complaints [facility] Past Medical History Medical History (Updated 01/11/22 @ 20:12 by Michelle Fu NP) Acute sinusitis Changing skin lesion Colonoscopy planned 2009 Combined systolic and diastolic cardiac dysfunction Depression Diabetes Dyslipidemia Elevated troponin Encounter for audiology evaluation 2017 Eye exam normal 2018 History of bone density study 2017 Hyperlipidemia Hypertension Mammogram normal 2018 URI (upper respiratory infection) Surgical History Surgical History (Updated 01/11/22 @ 20:03 by Michelle Fu NP) Calcium deposit in bursa, unspecified ankle and foot right heel 2012 left heel 2010 Gallbladder calculus with acute cholecystitis 2010 History of back surgery L3,L4,L5,S1 removed spinal fluid that was outside of spinal column 1987 History of back surgery L4,L5 removed spinal fluid that was outside of spinal column 1991 History of breast lump removal left breast 1971 History of hysterectomy still has both ovaries 1974 History of removal
[2022-01-11 20:03] LABS: Glucose Point of Care 178 mg/dl (65-105)
[2022-01-11] MEDS: PANTOPRAZOLE 40 MG TABLET PO (21:54)
[2022-01-11] MEDS: carvediloL 3.125 MG TABLET PO (21:54)
[2022-01-11] MEDS: HEPARIN SODIUM 5,000 UNITS/ML VIAL 5000 UNITS SUB-Q (21:55)
[2022-01-11] MEDS: MELATONIN 5 MG TABLET 10 MG PO (21:55)
[2022-01-11 23:02] LABS: Anion Gap 14 mmol/L (8-16); Blood Urea Nitrogen 45 mg/dL (7-17); Calcium 9.8 mg/dL (8.4-10.2); Carbon Dioxide 19 mmol/L (22-30); Chloride 102 mmol/L (98-107); Estimated CRCL calculation 40 ml/min; Estimated Glomerular Filt Rate 48; Glucose 170 mg/dL (65-110); Potassium 5.9 mmol/L (3.4-5.0); Sodium 135 mmol/L (137-145)
[2022-01-11 23:50] LABS: Glucose Point of Care 156 mg/dl (65-105)
[2022-01-12] VITALS (12 sets, daily range): BP systolic 116–132; BP diastolic 66–74; PULSE 67–117; RESP 14–16; TEMP 36.4–36.9; O2SAT 95–99; BMI 29.7
[2022-01-12 05:32] LABS: Basophils Percent Auto 0.2 % (0.2-1.2); Eosinophils Absolute Auto 0.1 K/mm3 (0-0.3); Eosinophils Percent Auto 1.2 % (0-4.4); Hematocrit 37.2 % (37.0-47.0); Hemoglobin 11.9 g/dL (12.0-15.0); Immature Granulocyte Absolute 0.03 K/mm3 (0.00-0.031); Immature Granulocyte Percent A 0.3 % (0-0.5); Lymphocytes Percent Auto 47.3 % (18.3-44.2); Mean Corpuscular Hemoglobin 28.3 pg (26-34); Mean Corpuscular Volume 88.6 fl (80-100); Mean Platelet Volume 9.5 fl (7.4-10.4); Monocytes Absolute Auto 0.5 K/mm3 (0.1-0.6); Monocytes Percent Auto 4.7 % (2.6-8.5); Neutrophils Absolute Auto 4.9 K/mm3 (1.3-6.7); Neutrophils Percent Auto 46.3 % (45.5-73.1); Platelet Count Result 168 k/mm3 (150-375); Red Cell Distribution Width 13.7 % (11.5-14.5); White Blood Count 10.6 K/mm3 (4.5-10.0)
[2022-01-12 05:44] LABS: Lactic Acid Reflex 1.7 mmol/L (0.7-2.0)
[2022-01-12 05:47] LABS: Alanine Aminotransferase 23 U/L (6-35); Albumin Level 4.7 g/dL (3.5-5.1); Alkaline Phosphatase 171 U/L (38-126); Anion Gap 12 mmol/L (8-16); Aspartate Amino Transferase 30 U/L (14-36); Bilirubin,Total 0.6 mg/dL (0.2-1.3); Blood Urea Nitrogen 43 mg/dL (7-17); Calcium 9.7 mg/dL (8.4-10.2); Carbon Dioxide 23 mmol/L (22-30); Chloride 102 mmol/L (98-107); Estimated CRCL calculation 43 ml/min; Estimated Glomerular Filt Rate 53; Glucose 120 mg/dL (65-110); Magnesium 1.4 mg/dL (1.6-2.3); Phosphorus 3.7 mg/dL (2.5-4.5); Potassium 5.5 mmol/L (3.4-5.0); Sodium 137 mmol/L (137-145)
--- NOTE | 2022-01-12 05:48 | PC.NURSE ---
MONITORING THE CHARTING AND MEDICATION DISPENSING FOR THIS PATIENT, DONE BY SONNY AYALA RN-LICENSE PENDING, AND I AGREE WITH THE CHARTING.
--- NOTE | 2022-01-12 08:00 | PM.PNCARD ---
Progress Note: A&P Assessment and Plan (1) Chest pain: Code(s): R07.9 - Chest pain, unspecified Status: Acute Assessment and Plan: Atypical. Chest pressure only while in supine position could be related to increase in LVEDP. With negative lexiscan myoview stress test on 11/07/21. (2) FAUZIA (acute kidney injury): Code(s): N17.9 - Acute kidney failure, unspecified Status: Acute Assessment and Plan: Resolved. Probably related to low dose Lasix 20 mg daily along with lack of appetite. (3) Elevated troponin: Code(s): R77.8 - Other specified abnormalities of plasma proteins Status: Acute Assessment and Plan: First troponin at .036 then trended down. This could be related to FAUZIA. (4) ZAMARRIPA (dyspnea on exertion): Code(s): R06.00 - Dyspnea, unspecified Status: Acute (5) Combined systolic and diastolic cardiac dysfunction: Code(s): I51.89 - Other ill-defined heart diseases Status: Acute Assessment and Plan: Not in acute heart failure. Echo findings suggest it could be due to Takotsubo cardiomyopathy. Was on Coreg and Lisinopril. 11/07/21 Echo: EF 40-45%, mild LVE, basal to mid LV hypokinetic, while apical segments have normal contractility, grade I diastolic dysfunction (E/e' 11), RV hypokinetic with TAPSE 1.3 cm. Stopped Furosemide. Stopped Lisinopril due to dry cough and FAUZIA. Will start low dose Losartan 12.5 mg daily if BP remains stable. Decreased Coreg 3.125 mg BID. (6) Hypertension: Code(s): I10 - Essential (primary) hypertension Status: Acute Assessment and Plan: Stable. Will not start Amlodipine. Instead will try Losartan 12.5 mg daily for systolic dysfunction as long as potassium level is normal. Start HCTZ 12.5 mg daily. (7) Hyperlipidemia: Code(s): E78.5 - Hyperlipidemia, unspecified Status: Acute Assessment and Plan: On Atorvastatin. Subjective Date/time seen: 01/12/22 08:00 Interval history: Had some chest pressure lying on her back last night but not on her left side. No more severe left arm pain. Exam Const: General: cooperative, healthy appearing and comfortable Resp: Auscultation: clear to auscultation bilaterally, no crackles, no rales, no rhonchi and no wheezes Cardio: Jugular venous distension: no JVD Rate: regular rate Rhythm: regular rhythm Heart sounds: no murmurs Peripheral pulses: dorsalis pedis present GI: GI Palp: No abdominal tenderness and Yes Soft to palpation Neuro: General: oriented to person, oriented to place and oriented to time Extrem: Right lower extremity: no edema Left lower extremity: no edema Objective Data Vital Signs Vital Signs: Vital Signs - 24 hr 01/11/22 13:11 01/11/22 13:33 01/11/22 13:41 Temperature 97.8 F Pulse Rate 94 86 93 Respiratory Rate 18 16 20 Blood Pressure 112/77 147/83 H Pulse Oximetry 99 96 96 Oxygen Delivery Room Air Room Air 01/11/22 13:45 01/11/22 13:46 01/11/22 14:05 Temperature Pulse Rate 86 91 83 Respiratory Rate 16 16 19 Blood Pressure 113/74 Pulse Oximetry 95 95 94 Oxygen Delivery 01/11/22 14:15 01/11/22 14:30 01/11/22 14:45 Temperature Pulse Rate 88 92 87 Respiratory Rate 19 29 H 21 H Blood Pressure Pulse Oximetry 94 96 97 Oxygen Delivery 01/11/22 15:00 01/11/22 15:15 01/11/22 15:31 Temperature Pulse Rate 92 90 Respiratory Rate 25 H 19 Blood Pressure 123/86 Pulse Oximetry 95 96 Oxygen Delivery 01/11/22 15:30 01/11/22 15:31 01/11/22 15:45 Temperature Pulse Rate 92 89 91 Respiratory Rate 21 H 20 20 Blood Pressure 123/68 Pulse Oximetry 96 95 95 Oxygen Delivery 01/11/22 15:47 01/11/22 16:00 01/11/22 16:01 Temperature Pulse Rate 85 90 88 Respiratory Rate 24 H 28 H 23 H Blood Pressure 103/69 124/70 Pulse Oximetry 94 96 95 Oxygen Delivery 01/11/22 17:19 01/11/22 18:00 01/11/22 20:23 Temperature 98.2 F 98.3 F Pulse Rate 88 86 80 R
[2022-01-12 08:08] LABS: Glucose Point of Care 114 mg/dl (65-105)
--- NOTE | 2022-01-12 09:02 | PM.IMPN ---
Progress Note: A&P Assessment and Plan (1) Chest pain: Code(s): R07.9 - Chest pain, unspecified Status: Acute Assessment and Plan: atypical for cardiac etiology per Cardiology consultation, okay for discharge from their standpoint later today if patient tolerates the medication changes they made (2) FAUZIA (acute kidney injury): Code(s): N17.9 - Acute kidney failure, unspecified Status: Acute Assessment and Plan: resolving, likely prerenal, gentle IV fluids today, discontinue Lasix and lisinopril indefinitely (3) 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: Code(s): I50.40 - Unspecified combined systolic (congestive) and diastolic (congestive) heart failure Status: Acute Assessment and Plan: appears euvolemic for now, gentle IV fluids today, monitor response closely (4) Diabetes: Code(s): E11.9 - Type 2 diabetes mellitus without complications Status: Acute Assessment and Plan: A1c is 7, continue Accu-Cheks and sliding scale insulin, hold metformin (5) Depression: Code(s): F32.A - Depression, unspecified Status: Acute Assessment and Plan: possibly uncontrolled, defer to outpatient management, currently not on any medication (6) Dyslipidemia: Code(s): E78.5 - Hyperlipidemia, unspecified Status: Acute Assessment and Plan: continue statin (7) Elevated troponin: Code(s): R77.8 - Other specified abnormalities of plasma proteins Status: Acute Assessment and Plan: elevated troponin secondary to acute kidney injury, now resolved (8) Essential (primary) hypertension: Onset Date: ~2004 Code(s): I10 - Essential (primary) hypertension Status: Acute Assessment and Plan: Norvasc, lisinopril, Lasix all discontinued per Cardiology recommendations, Coreg decreased, losartan and hydrochlorothiazide started will monitor patient's blood pressure on this new regimen, recheck BMP this afternoon, continue discharge if potassium resolves and blood pressure stabilizes (9) Gastroesophageal reflux disease without esophagitis: Code(s): K21.9 - Gastro-esophageal reflux disease without esophagitis Status: Acute Assessment and Plan: continue PPI (10) Acute hyperkalemia: Code(s): E87.5 - Hyperkalemia Status: Acute Assessment and Plan: will give a dose of Kayexalate as well as calcium gluconate, recheck this afternoon, anticipate discharge if potassium is below 5 with repeat BMP on Saturday on an outpatient basis (11) Poor appetite: Code(s): R63.0 - Anorexia Status: Acute Assessment and Plan: unsure of etiology of poor appetite, albumin is actually 4.7, no indications of failure to thrive on lab work nor imaging, no signs of underlying malignancy, suspect this is due to a psychological etiology, would recommend further depression management on outpatient basis, possibly psychopharmacology versus CBT Plan DVT prophylaxis with heparin GI prophylaxis with PPI Code status full code Subjective Date/time seen: 01/12/22 09:02 Objective Data Vital Signs Vital Signs: Vital Signs - 24 hr 01/11/22 13:11 01/11/22 13:33 01/11/22 13:41 Temperature 97.8 F Pulse Rate 94 86 93 Respiratory Rate 18 16 20 Blood Pressure 112/77 147/83 H Pulse Oximetry 99 96 96 Oxygen Delivery Room Air Room Air 01/11/22 13:45 01/11/22 13:46 01/11/22 14:05 Temperature Pulse Rate 86 91 83 Respiratory Rate 16 16 19 Blood Pressure 113/74 Pulse Oximetry 95 95 94 Oxygen Delivery 01/11/22 14:15 01/11/22 14:30 01/11/22 14:45 Temperature Pulse Rate 88 92 87 Respiratory Rate 19 29 H 21 H Blood Pressure Pulse Oximetry 94 96 97 Oxygen Delivery 01/11/22 15:00 01/11/22 15:15 01/11/22 15:31 Temperature Pulse Rate 92 90 Respiratory Rate 25 H 19 Blood Pressure 123/86 Pulse Oximetry 95 96 O
[2022-01-12] MEDS: MAGNESIUM OXIDE 400 MG TABLET PO (09:26)
[2022-01-12] MEDS: carvediloL 3.125 MG TABLET PO (09:26)
[2022-01-12] MEDS: OMEGA 3 POLYUNSAT FATTY ACIDS 1 GM CAP PO (09:27)
[2022-01-12] MEDS: PANTOPRAZOLE 40 MG TABLET PO (09:27)
[2022-01-12] MEDS: VITAMIN B COMPLEX CAPSULE 1 CAP PO (09:27)
[2022-01-12] MEDS: ATORVASTATIN 20 MG TABLET BY MOUTH (09:27)
[2022-01-12] MEDS: hydroCHLOROthiazide 12.5 MG CAPSULE PO (09:28)
[2022-01-12] MEDS: ASPIRIN 81 MG ENTERIC TABLET PO (09:28)
[2022-01-12] MEDS: SODIUM POLYSTYRENE SULFONONATE 15 GM/60 ML BTL 30 GM PO (10:37)
[2022-01-12] MEDS: HEPARIN SODIUM 5,000 UNITS/ML VIAL 5000 UNITS SUB-Q (10:37)
[2022-01-12] MEDS: SODIUM CHLORIDE 0.9% IV 1,000 ML 75 ML IV CONT (10:38)
[2022-01-12] MEDS: CALCIUM GLUC 1,000 MG/NS 50 ML 1,000 MG/50 ML BAG 100 MG IVPB (10:41)
[2022-01-12 12:32] LABS: Glucose Point of Care 192 mg/dl (65-105)
[2022-01-12 14:38] LABS: Anion Gap 16 mmol/L (8-16); Blood Urea Nitrogen 38 mg/dL (7-17); Calcium 10.2 mg/dL (8.4-10.2); Carbon Dioxide 20 mmol/L (22-30); Chloride 101 mmol/L (98-107); Estimated CRCL calculation 48 ml/min; Estimated Glomerular Filt Rate 60; Glucose 158 mg/dL (65-110); Potassium 4.9 mmol/L (3.4-5.0); Sodium 137 mmol/L (137-145)
[2022-01-12] MEDS: BENZONATATE 100 MG CAPSULE PO (14:54)
[2022-01-12 17:09] LABS: Glucose Point of Care 154 mg/dl (65-105)
--- NOTE | 2022-01-12 17:30 | PM.DS ---
DS: Admitting Diagnosis Discharge Date January 12, 2022 Admitting Diagnosis Chest pain DS: Discharge Diagnosis Discharge Diagnosis (1) Chest pain: Code(s): R07.9 - Chest pain, unspecified Status: Acute Assessment and Plan: atypical for cardiac etiology per Cardiology consultation, okay for discharge from their standpoint later today if patient tolerates the medication changes they made (2) FAUZIA (acute kidney injury): Code(s): N17.9 - Acute kidney failure, unspecified Status: Acute Assessment and Plan: resolving, likely prerenal, gentle IV fluids today, discontinue Lasix and lisinopril indefinitely (3) 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: Code(s): I50.40 - Unspecified combined systolic (congestive) and diastolic (congestive) heart failure Status: Acute Assessment and Plan: appears euvolemic for now, gentle IV fluids today, monitor response closely (4) Diabetes: Code(s): E11.9 - Type 2 diabetes mellitus without complications Status: Acute Assessment and Plan: A1c is 7, continue Accu-Cheks and sliding scale insulin, hold metformin (5) Depression: Code(s): F32.A - Depression, unspecified Status: Acute Assessment and Plan: possibly uncontrolled, defer to outpatient management, currently not on any medication (6) Dyslipidemia: Code(s): E78.5 - Hyperlipidemia, unspecified Status: Acute Assessment and Plan: continue statin (7) Elevated troponin: Code(s): R77.8 - Other specified abnormalities of plasma proteins Status: Acute Assessment and Plan: elevated troponin secondary to acute kidney injury, now resolved (8) Essential (primary) hypertension: Onset Date: ~2004 Code(s): I10 - Essential (primary) hypertension Status: Acute Assessment and Plan: Norvasc, lisinopril, Lasix all discontinued per Cardiology recommendations, Coreg decreased, losartan and hydrochlorothiazide started will monitor patient's blood pressure on this new regimen, recheck BMP this afternoon, continue discharge if potassium resolves and blood pressure stabilizes (9) Gastroesophageal reflux disease without esophagitis: Code(s): K21.9 - Gastro-esophageal reflux disease without esophagitis Status: Acute Assessment and Plan: continue PPI (10) Acute hyperkalemia: Code(s): E87.5 - Hyperkalemia Status: Acute Assessment and Plan: will give a dose of Kayexalate as well as calcium gluconate, recheck this afternoon, anticipate discharge if potassium is below 5 with repeat BMP on Saturday on an outpatient basis (11) Poor appetite: Code(s): R63.0 - Anorexia Status: Acute Assessment and Plan: unsure of etiology of poor appetite, albumin is actually 4.7, no indications of failure to thrive on lab work nor imaging, no signs of underlying malignancy, suspect this is due to a psychological etiology, would recommend further depression management on outpatient basis, possibly psychopharmacology versus CBT Plan DVT prophylaxis with heparin GI prophylaxis with PPI Code status full code DS: Summary Hospital Course Hospital Course: 81-year-old female patient who came to the emergency room today to be evaluated for intermittent chest.? The patient's regional coordinator is Dr. Joshi.? The patient stated she had pain like this a few weeks ago and only lasted an hour and was resolved.? However this morning she was at rest and once again she developed this chest pain she stated that she feels very weak and has had a poor appetite.? She explained that she lost 20 lb in the last 4-6 weeks just because she has decreased appetite.? She has history of diabetes and congestive heart failure.? The patient had an echo on 11/07/2021.? Her white count was listed as 12.5 today.? Her potassium was found to be 5.5.? Anion gap 21.? BUN 54.? Creatinine 1.3.? H
== END 2022-01-12 18:30 | disposition home or self-care (01) ==
LOC: ANHED 14:28 → ANHIMU 16:23
PROVIDERS: Nurse Practitioner; Admitting Provider Internal Medicine; Emergency Provider Emergency Medicine; PCP Family Medicine; Visit Provider Student in an Organized Health Care Education/Training Program
DX: R07.9 Chest pain, unspecified (principal); R06.00 Dyspnea, unspecified; N17.9 Acute kidney failure, unspecified; E87.5 Hyperkalemia; R63.0 Anorexia; E11.9 Type 2 diabetes mellitus without complications; R77.8 Other specified abnormalities of plasma proteins; I50.40 Unspecified combined systolic (congestive) and diastolic (congestive) heart failure; E78.5 Hyperlipidemia, unspecified; I11.0 Hypertensive heart disease with heart failure; F32.A Depression, unspecified; K21.9 Gastro-esophageal reflux disease without esophagitis; Z20.822 Contact with and (suspected) exposure to COVID-19
CPT/HCPCS: 36415; 71046; 74177; 80048; 80053; 81001; 82948; 83036; 83605; 83690; 83735; 84100; 84443; 84484; 85025; 85610; 85730; 93005; 96372; 96374; 96375; 99285; A9270; C9803; G0378; J0610; J1644; J1815; J7030; Q9967; U0003; U0005

== ENCOUNTER 2022-01-19 07:49 | Emergency (ER) | payer OTHER, MEDICAID, SELFPAY ==
[2022-01-19] VITALS (40 sets, daily range): BP systolic 80–148; BP diastolic 56–89; PULSE 79–108; RESP 14–22; TEMP 36.6; O2SAT 94–100
--- NOTE | ~2022-01-19 | US_ITS ---
EXAMINATION:US venous doppler LE LT INDICATION:Left leg swelling TECHNIQUE: Multiple grayscale, color flow and Doppler images of the left lower extremity deep venous systems were obtained and reviewed. COMPARISON:No prior studies for comparison. FINDINGS: There is extensive deep venous thrombosis throughout the left lower extremity veins. There is also thrombosis of the greater and lesser saphenous veins. IMPRESSION: 1: Extensive deep venous thrombosis throughout the left lower extremity. Dr. Seb Adrian discussed with Dr. Miguel Grimm MD at 01/19/2022 09:08 CDT. Reviewed, dictated and finalized at location A. IMPRESSION: 1: Extensive deep venous thrombosis throughout the left lower extremity. Dr. Seb Adrian discussed with Dr. Miguel Grimm MD at 01/19/2022 09:08 CDT .
[2022-01-19 08:43] LABS: Basophils Percent Auto 0.3 % (0.2-1.2); Eosinophils Absolute Auto 0.3 K/mm3 (0-0.3); Eosinophils Percent Auto 1.8 % (0-4.4); Hematocrit 34.9 % (37.0-47.0); Hemoglobin 11.5 g/dL (12.0-15.0); Immature Granulocyte Absolute 0.18 K/mm3 (0.00-0.031); Immature Granulocyte Percent A 1.1 % (0-0.5); Lymphocytes Absolute Auto 7.61 K/mm3 (0.9-3.2); Lymphocytes Percent Auto 47.7 % (18.3-44.2); Mean Corpuscular Hemoglobin 28.2 pg (26-34); Mean Corpuscular Volume 85.5 fl (80-100); Mean Platelet Volume 9.6 fl (7.4-10.4); Monocytes Absolute Auto 0.7 K/mm3 (0.1-0.6); Monocytes Percent Auto 4.2 % (2.6-8.5); Neutrophils Absolute Auto 7.2 K/mm3 (1.3-6.7); Neutrophils Percent Auto 44.9 % (45.5-73.1); Platelet Count Result 123 k/mm3 (150-375); Red Blood Count 4.08 M/mm3 (4.2-5.4); Red Cell Distribution Width 13.8 % (11.5-14.5)
[2022-01-19 08:53] LABS: Anion Gap 20 mmol/L (8-16); Blood Urea Nitrogen 34 mg/dL (7-17); Calcium 9.5 mg/dL (8.4-10.2); Carbon Dioxide 17 mmol/L (22-30); Chloride 98 mmol/L (98-107); Creatine Kinase 23 U/L (30-135); Estimated CRCL calculation 36 ml/min; Estimated Glomerular Filt Rate 43; Glucose 179 mg/dL (65-110); INR 1.6; Potassium 4.4 mmol/L (3.4-5.0); Prothrombin Time 18.3 Seconds (11.1-14.7); Sodium 135 mmol/L (137-145)
[2022-01-19 08:54] LABS: Partial Thromboplastin Time 33.4 SECONDS (22.3-36.8)
--- NOTE | 2022-01-19 09:11 | ED.EXTPRO ---
HPI - Extremity Problem General Chief complaint: Extremity Problem,Nontraumatic Stated complaint: L hip pain/swelling Time Seen by Provider: 01/19/22 07:59 History of Present Illness HPI Narrative: Patient is an 81-year-old female who presents ER with lower extremity pain and swelling and discoloration. She reports she has had some pain up by her hip for the last 2 days but today when she woke up her leg was swollen and purple. No chest pain or chest pressure. No shortness of breath. No history of DVT or PE in the past. Patient recently hospitalized in the last week and a half for acute kidney injury and chest pain. She had an unremarkable work-up at that time. She did receive heparin for DVT prophylaxis. Related Data Home Medications Medication Instructions Recorded Confirmed aspirin 81 mg tablet,delayed 81 mg PO DAILY 05/12/20 01/19/22 release (Adult Aspirin Regimen) calcium carbonate 600 mg calcium 600 mg PO DAILY 05/12/20 01/19/22 (1,500 mg) tablet (Calcium) cholecalciferol (vitamin D3) 25 25 mcg PO DAILY 05/12/20 01/19/22 mcg (1,000 unit) capsule vitamin B complex (B 1 tablet PO DAILY 05/12/20 01/11/22 Complex-Vitamin B12 tablet) vit C 250 mg-vit E 90 mg-zinc 40 1 tablet PO BID 12/07/20 01/11/22 mg-copper 1 [id number] capsule (PreserVision AREDS-2) melatonin 10 mg tablet 10 mg PO QHS 08/01/21 01/11/22 omega 6-clj-dul-fish oil 1,000 mg 1 cap PO DAILY 08/15/21 01/19/22 (120 mg-180 mg) capsule (Fish Oil) Allergies Allergy/AdvReac Type Severity Reaction Status Date / Time alendronate sodium Allergy Intermediate hot flashes Verified 01/19/22 07:55 citalopram [From Celexa] AdvReac Diarrhea Verified 01/19/22 07:55 [facility] Past Medical History Medical History (Updated 01/19/22 @ 09:49 by Miguel Grimm MD) Acute sinusitis Changing skin lesion Colonoscopy planned 2009 Combined systolic and diastolic cardiac dysfunction Depression Diabetes Dyslipidemia Elevated troponin Encounter for audiology evaluation 2017 Eye exam normal 2018 History of bone density study 2017 Hyperlipidemia Hypertension Mammogram normal 2018 URI (upper respiratory infection) Surgical History Surgical History (Updated 01/11/22 @ 20:03 by Michelle Fu NP) Calcium deposit in bursa, unspecified ankle and foot right heel 2012 left heel 2010 Gallbladder calculus with acute cholecystitis 2011 History of back surgery L3,L4,L5,S1 removed spinal fluid that was outside of spinal column 1988 History of back surgery L4,L5 removed spinal fluid that was outside of spinal column 1991 History of breast lump removal left breast 1970 History of hysterectomy still has both ovaries 1974 History of removal of skin mole 100+ 1971 Hx of cholecystectomy Parathyroid disorder 2009 Skin cancer, basal cell 1974 2015 (2) 2016 [place] teeth removed 1984 Family History Family History Sibling Liver cancer Breast cancer Other Cerebrovascular accident Family history of primary malignant neoplasm of liver Social History Social History (Updated 01/11/22 @ 20:05 by Michelle Fu NP) Social History: The patient is but lives with her . They have had 4 children together. Her daughter Ana M is the durable power health care attorney for healthcare. 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 The patient is a former smoker. She does not use any alcohol marijuana or illicit drugs. Code status full code Smoking status: Former smoker Second hand tobacco smoke exposure: Yes Alcohol intake: never Drinks per week: 2 Alcohol use details: wine Substance use: never Substance use type: does not use Gender identity (if verbalized by the patient): Female Sexual Orientation (if Verbalized by the Patient): Straight or Heterosexual Spiritual care concerns: No Agree to blood products: Ye
[2022-01-19] MEDS: MORPHINE SULFATE (*CRX) 4 MG/ML INJ IV PUSH (09:22)
[2022-01-19] MEDS: HEPARIN SODIUM 5,000 UNITS/ML VIAL 5500 UNITS IV PUSH (09:26)
[2022-01-19] MEDS: HEPARIN SOD/D5W 100 UNITS/ML 25,000 UNITS/250 ML BAG 12 UNITS IV CONT (09:26)
--- NOTE | 2022-01-19 09:30 | PC.NURSE ---
PT LEG ELEVATED WITH PILLOW
--- NOTE | 2022-01-19 09:39 | PC.NURSE ---
DR. KRISHNA MADE AWARE OF PT TRENDING BLOOD PRESSURE. 500ML OF FLUIDS ORDERED
[2022-01-19] MEDS: SODIUM CHLORIDE 0.9% IV 500 ML 999 ML IV CONT (09:46)
--- NOTE | 2022-01-19 10:00 | PC.NURSE ---
SPOKE WITH NATALIE FROM [facility] AND UPDATED WITH PT TRIAGE INFORMATION. NATALIE REPORTS PT SHOULD HAVE BED AT [facility] LATER TODAY AFTER DISCHARGES
[2022-01-19 10:26] LABS: SARS-CoV-2 RNA PCR Negative
--- NOTE | 2022-01-19 11:13 | PC.NURSE ---
PT CONTINUES TO BE PAIN FREE WITH ELEVATED LEG AND BLOOD PRESSURE IS IMPROVED AFTER FLUID BOLUS.
--- NOTE | 2022-01-19 20:57 | PC.NURSE ---
[facility] here
--- NOTE | 2022-01-19 21:39 | PC.NURSE ---
PHONE CALL NIYAH AT [facility] TO INFORM THAT PT LEFT STEVAN 10 MINS AGO
== END 2022-01-19 21:15 | disposition short-term general hospital (02) ==
PROVIDERS: Emergency Provider Emergency Medicine; PCP Family Medicine
DX: I82.492 Acute embolism and thrombosis of other specified deep vein of left lower extremity (principal); Z20.822 Contact with and (suspected) exposure to COVID-19; E11.9 Type 2 diabetes mellitus without complications; E78.5 Hyperlipidemia, unspecified; I10 Essential (primary) hypertension; Z85.828 Personal history of other malignant neoplasm of skin; Z90.710 Acquired absence of both cervix and uterus; Z87.891 Personal history of nicotine dependence; Z79.82 Long term (current) use of aspirin; Z79.84 Long term (current) use of oral hypoglycemic drugs
CPT/HCPCS: 36415; 80048; 82550; 85025; 85610; 85730; 93971; 96365; 96366; 96375; 99285; C9803; J1644; J2270; J7040; U0003; U0005

== ENCOUNTER 2022-01-28 07:35 | Emergency (ER) | payer OTHER, MEDICAID, SELFPAY ==
[2022-01-28 07:40] VITALS: BP 148/79; PULSE 101; RESP 16; TEMP 36.3; O2SAT 96
[2022-01-28 08:43] LABS: Basophils Percent Auto 0.2 % (0.2-1.2); Eosinophils Absolute Auto 0.2 K/mm3 (0-0.3); Eosinophils Percent Auto 1.6 % (0-4.4); Hematocrit 31.4 % (37.0-47.0); Hemoglobin 10.1 g/dL (12.0-15.0); Immature Granulocyte Absolute 0.04 K/mm3 (0.00-0.031); Immature Granulocyte Percent A 0.4 % (0-0.5); Lymphocytes Absolute Auto 4.21 K/mm3 (0.9-3.2); Lymphocytes Percent Auto 43.6 % (18.3-44.2); Mean Corpuscular HGB Conc 32.2 g/dl (32-36); Mean Corpuscular Hemoglobin 28.5 pg (26-34); Mean Corpuscular Volume 88.5 fl (80-100); Mean Platelet Volume 9.7 fl (7.4-10.4); Monocytes Absolute Auto 0.5 K/mm3 (0.1-0.6); Neutrophils Absolute Auto 4.8 K/mm3 (1.3-6.7); Neutrophils Percent Auto 49.2 % (45.5-73.1); Platelet Count Result 199 k/mm3 (150-375); Red Blood Count 3.55 M/mm3 (4.2-5.4); Red Cell Distribution Width 15.1 % (11.5-14.5); White Blood Count 9.7 K/mm3 (4.5-10.0)
[2022-01-28 09:01] LABS: INR 1.8; Prothrombin Time 20.3 Seconds (11.1-14.7)
[2022-01-28 09:02] LABS: Partial Thromboplastin Time 26.7 SECONDS (22.3-36.8)
[2022-01-28 09:14] LABS: Anion Gap 11 mmol/L (8-16); Blood Urea Nitrogen 21 mg/dL (7-17); Calcium 9.5 mg/dL (8.4-10.2); Carbon Dioxide 27 mmol/L (22-30); Chloride 99 mmol/L (98-107); Estimated CRCL calculation 53 ml/min; Estimated Glomerular Filt Rate > 60; Glucose 147 mg/dL (65-110); Potassium 4.3 mmol/L (3.4-5.0); Sodium 137 mmol/L (137-145)
--- NOTE | 2022-01-28 09:26 | ED.EPISTAXIS ---
HPI - Epistaxis General Chief complaint: Epistaxis Stated complaint: nosebleed, taking Eliquis Time Seen by Provider: 01/28/22 08:01 History of Present Illness HPI Narrative: Patient is an 81-year-old female who presents ER with epistaxis. Patient has recently been started on Eliquis after having a stent placed in her left lower extremity after having a large DVT. During that admission she was also evaluated for possible malignancy in her lung, ribs, and liver. Today she is having no difficulty breathing or swallowing. She is trying to control bleeding with pressure. Symptoms began after blowing her nose after had been using got back to her throat in the evening. Related Data Home Medications Medication Instructions Recorded Confirmed aspirin 81 mg tablet,delayed 81 mg PO DAILY 05/12/20 01/19/22 release (Adult Aspirin Regimen) calcium carbonate 600 mg calcium 600 mg PO DAILY 05/12/20 01/19/22 (1,500 mg) tablet (Calcium) cholecalciferol (vitamin D3) 25 25 mcg PO DAILY 05/12/20 01/19/22 mcg (1,000 unit) capsule vitamin B complex (B 1 tablet PO DAILY 05/12/20 01/11/22 Complex-Vitamin B12 tablet) vit C 250 mg-vit E 90 mg-zinc 40 1 tablet PO BID 12/07/20 01/11/22 mg-copper 1 [id number]-seucja-ysvolv capsule (PreserVision AREDS-2) melatonin 10 mg tablet 10 mg PO QHS 08/01/21 01/11/22 omega 7-qhf-kht-fish oil 1,000 mg 1 cap PO DAILY 08/15/21 01/19/22 (120 mg-180 mg) capsule (Fish Oil) Allergies Allergy/AdvReac Type Severity Reaction Status Date / Time alendronate sodium Allergy Intermediate hot flashes Verified 01/19/22 07:55 citalopram [From Celexa] AdvReac Diarrhea Verified 01/19/22 07:55 Review of Systems Review of Systems: All systems reviewed & are unremarkable except as noted in HPI and below Constitutional: Constitutional: Denies chills and Denies fever(s) ENT: Reports epistaxis, Denies nasal congestion and Denies sore throat Respiratory: Respiratory: Denies cough, Denies dyspnea and Denies wheezing Gastrointestinal: Gastrointestinal: Denies abdominal pain, Denies nausea and Denies vomiting PMFSH Past Medical History Medical History (Updated 01/28/22 @ 09:26 by Miguel Grimm MD) Acute sinusitis Changing skin lesion Colonoscopy planned 2009 Combined systolic and diastolic cardiac dysfunction Depression Diabetes Dyslipidemia Elevated troponin Encounter for audiology evaluation 2017 Eye exam normal 2017 History of bone density study 2017 Hyperlipidemia Hypertension Mammogram normal 2018 URI (upper respiratory infection) Surgical History Surgical History Calcium deposit in bursa, unspecified ankle and foot right heel 2013 left heel 2010 Gallbladder calculus with acute cholecystitis 2010 History of back surgery L3,L4,L5,S1 removed spinal fluid that was outside of spinal column 1987 History of back surgery L4,L5 removed spinal fluid that was outside of spinal column 1991 History of breast lump removal left breast 1970 History of hysterectomy still has both ovaries 1974 History of removal of skin mole 100+ 1971 Hx of cholecystectomy Parathyroid disorder 2009 Skin cancer, basal cell 1974 2015 (2) 2016 [place] teeth removed 1984 Family History Family History Sibling Liver cancer Breast cancer Other Cerebrovascular accident Family history of primary malignant neoplasm of liver Social History Social History (Updated 01/11/22 @ 20:05 by Michelle Fu NP) Social History: The patient is but lives with her . They have had 4 children together. Her daughter Ana M is the durable power litigation attorney for healthcare. 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 The patient is a former smoker. She does not use any alcohol marijuana or illicit drugs. Code status full code Smoking status: For
[2022-01-28] MEDS: OXYMETAZOLINE HCL 0.05% NAS 15 ML BTL (*BKC) 1 SPRAY NASAL (09:28)
[2022-01-28 10:18] VITALS: BP 132/78; PULSE 114; RESP 16; O2SAT 95
== END 2022-01-28 10:19 | disposition home or self-care (01) ==
PROVIDERS: Emergency Provider Emergency Medicine; PCP Family Medicine
DX: R04.0 Epistaxis (principal); E11.9 Type 2 diabetes mellitus without complications; I50.40 Unspecified combined systolic (congestive) and diastolic (congestive) heart failure; I11.0 Hypertensive heart disease with heart failure; E78.5 Hyperlipidemia, unspecified; E21.5 Disorder of parathyroid gland, unspecified; Z90.710 Acquired absence of both cervix and uterus; Z86.718 Personal history of other venous thrombosis and embolism; Z85.828 Personal history of other malignant neoplasm of skin; Z87.891 Personal history of nicotine dependence; Z79.84 Long term (current) use of oral hypoglycemic drugs; Z79.82 Long term (current) use of aspirin; Z79.01 Long term (current) use of anticoagulants
CPT/HCPCS: 36415; 80048; 85025; 85610; 85730; 99283; A9270

== ENCOUNTER 2022-01-30 09:36 | Outpatient (CLI) | payer OTHER, MEDICAID, SELFPAY ==
--- NOTE | 2022-01-30 09:55 | ECHO_ITS ---
Patient Info Name: Manasa Stuart Age: 81 years : 1940 Gender: Female Ht: 66 in Wt: 183 lbs BSA: 1.99 m2 HR: 107 bpm BP: 115 / 88 mmHg Technical Quality: Good Exam Date: 01/30/2022 10:26 AM Exam Location: [facility] Patient Status: Outpatient Admit Date: 01/30/2022 Staff Ordering Physician: Quinn Joshi DO Fill Plant Operator: Dina Lagos RDCS Attending Provider: Quinn Joshi DO Referring Physician: Adi ROJAS; Exam Type: CA echo doppler color flow Study Info Indications I50.40 - Unspecified combined systolic (congestive) and diastolic (congestive) heart failure Complete two-dimensional, color flow and Doppler transthoracic echocardiogram is performed. Summary 1. Complete two-dimensional, color flow and Doppler transthoracic echocardiogram is performed. 2. Left ventricular chamber dimension is mildly enlarged. 3. Left ventricular systolic function is mildly reduced, estimated at 45-50%. 4. The left ventricular diastolic function is grade I diastolic dysfunction. 5. E/e' 9 is minimally elevated. 6. There is mild aortic valve sclerosis. 7. The mitral valve has mildly calcified annulus. 8. There is mild mitral valve regurgitation. Left Ventricle E/e' 9 is minimally elevated. Left ventricular chamber dimension is mildly enlarged. Left ventricular systolic function is mildly reduced, estimated at 45-50%. The left ventricular diastolic function is grade I diastolic dysfunction. Right Ventricle Right ventricular chamber dimension is normal. Right ventricular systolic function is normal. Left Atria Left atrial chamber dimension is normal. Right Atria Right atrial chamber dimension is normal. Aortic Valve The aortic valve is trileaflet. There is mild aortic valve sclerosis. There is no aortic valve stenosis. There is no aortic valve regurgitation. Pulmonic Valve There is no pulmonic regurgitation. Mitral Valve The mitral valve has mildly calcified annulus. There is no mitral valve stenosis. There is mild mitral valve regurgitation. Tricuspid Valve There is no tricuspid valve regurgitation. Pericardium/Pleural There is no pericardial effusion. Inferior Vena Cava Normal inferior vena cava with >50% collapse upon inspiration consistent with normal right atrial pressure, 5 mmHg. Aorta The aortic root size at the sinus of Valsalva is normal. Left Ventricular Outflow Tract Name Value Normal LVOT 2D LVOT Diameter 2.0 cm LVOT Doppler LVOT Peak Gradient 5 mmHg LVOT Mean Gradient 3 mmHg LVOT VTI 18 cm LVOT VTI/AV VTI Ratio 1.2 LVOT Stroke Volume 55 ml LVOT CO 5.2 l/min LVOT CI 2.6 l/min/m2 Mitral Valve Name Value Normal MV Doppler
== END 2022-01-30 09:37 | disposition home or self-care (01) ==
LOC: ANHCARD 09:39
PROVIDERS: PCP Family Medicine; Visit Provider Internal Medicine Cardiovascular Disease
DX: I50.40 Unspecified combined systolic (congestive) and diastolic (congestive) heart failure (principal); I34.0 Nonrheumatic mitral (valve) insufficiency
CPT/HCPCS: 93306